=== PATIENT | male | born 1985 | race Caucasian/White ===

== ENCOUNTER → 2019-09-27 09:00 | Outpatient (CLI) | payer OTHER, SELFPAY ==
--- NOTE | 2019-09-27 | DI.MRI.S_ITS ---
PROCEDURE: MR CERVICAL SPINE WO CON INDICATIONS: CERVICALGIA TECHNIQUE: Noncontrast sagittal T1 spin echo and T2 fast spin echo, sagittal STIR, foraminal oblique sagittal T2 fast spin echo, and axial gradient echo or T2 fast spin echo through the cervical spine. COMPARISON: None. FINDINGS: Image quality: Excellent. Alignment and Curvature: There is normal bony alignment. Bone Marrow: Marrow demonstrates normal overall signal. Spinal Cord: Visualized spinal cord has normal size and signal. No cerebellar tonsillar herniation. Paraspinous Soft Tissues: No paravertebral masses. Prevertebral soft tissues are normal in thickness. C2-C3: Normal appearance. C3-C4: Normal appearance. C4-C5: Slight loss of the signal. Mild, diffuse disc bulge. No central stenosis. No neural foraminal narrowing. No neural compression. C5-C6: Slight loss of the signal. Mild, diffuse disc bulge. No central stenosis. No neural foraminal narrowing. No neural compression. C6-C7: Loss of the signal. Mild diffuse disc bulge with small central/left central disc protrusion. Moderate narrowing of the central canal. Mild left neural foraminal narrowing. No neural compression. C7-T1: Normal appearance. IMPRESSION: 1. Multilevel degenerative disease. 2. Moderate C6-C7 central canal narrowing. 3. Mild left C6-C7 neural foraminal narrowing. 4. No neural compression. Dictated by: Gaby Singh MD, PhD on 09/27/2019 at 14:23 Approved by: Gaby Singh MD, PhD on 09/27/2019 at 14:33
== END ==
PROVIDERS: Referring Provider Physical Medicine & Rehabilitation Pain Medicine; Visit Provider Physical Medicine & Rehabilitation Pain Medicine
DX: M50.321 Other cervical disc degeneration at C4-C5 level (principal); M48.02 Spinal stenosis, cervical region
CPT/HCPCS: 72141

== ENCOUNTER → 2020-06-14 15:32 | Outpatient (CLI) | payer OTHER, SELFPAY ==
--- NOTE | 2020-06-14 15:34 | DI.MRI.S_ITS ---
PROCEDURE: MR ANGIO HEAD WO/W CON INDICATIONS: Unspecified convulsions TECHNIQUE: Noncontrast axial 3-D [id number] MR angiogram, with 3-dimensional maximum intensity projection (MIP) reformats of the internal carotid arteries and posterior circulation then performed. COMPARISON: None. FINDINGS: Image quality: Excellent. Anterior circulation: Intracranial internal carotid arteries demonstrate normal size and intraluminal flow signal. The flow within the paired anterior cerebral arteries is normal and symmetric. The flow within the middle cerebral arteries is normal and symmetric. The anterior communicating artery is not well seen. No stenoses, occlusions, or aneurysms. Posterior circulation: Visualized portions of the vertebral arteries demonstrate normal caliber, and join to form a normal appearing basilar artery. The flow within the posterior cerebral arteries is normal and symmetric. No stenoses, occlusions, or aneurysms. IMPRESSION: Unremarkable intracranial angiogram, without an imaging explanation found for the patient's presenting symptoms. Dictated by: Darnell Olsen M.D. on 06/14/2020 at 15:33 Approved by: Darnell Olsen M.D. on 06/14/2020 at 15:35
== END ==
PROVIDERS: PCP Family Medicine; Referring Provider Family Medicine; Visit Provider Family Medicine
DX: R56.9 Unspecified convulsions (principal)
CPT/HCPCS: 70546

== ENCOUNTER → 2020-07-19 14:32 | Outpatient (CLI) | payer OTHER, SELFPAY ==
[2020-07-19 15:17] LABS: COVID19 -Nasal RAPID Negative (Negative)
== END ==
PROVIDERS: PCP Family Medicine; Visit Provider Nurse Practitioner Family
DX: Z20.822 Contact with and (suspected) exposure to COVID-19 (principal)
CPT/HCPCS: 87635; C9803